=== PATIENT | female | born 1990 | race Caucasian/White ===

== ENCOUNTER 2025-05-07 14:22 | Emergency (ER) | payer OTHER, SELFPAY ==
[2025-05-07 14:23] VITALS: BP 132/79; PULSE 111; RESP 16; TEMP 36.4; O2SAT 100; BMI 31.1
--- NOTE | 2025-05-07 17:34 | US_ITS ---
PROCEDURE: RIGHT LOWER EXTREMITY VENOUS DUPLEX IMAG/LIMITED/UNI 05/07/2025 REASON FOR EXAM: Right leg pain/swelling medial thigh region TECHNIQUE: Procedure Code: USVDUL Modality: US Procedure: VENOUS DUPLEX IMAG/LIMITED/UNI COMPARISON: None. FINDINGS: No intraluminal echogenicity to suggest the presence of a deep venous thrombosis. Appropriate respiratory variation, augmentation and venous compression is noted. In the medial right thigh at the area of clinical concern, there is thrombosis of a superficial venous varicosity seen compatible with superficial thrombophlebitis. US/Venous Duplex Imag/Limited/Uni IMPRESSION: No DVT in the right lower extremity. There is superficial thrombophlebitis of a superficial varicose vein in the medial right thigh at the area of clinical concern/tenderness. Reading Location: [id number]
--- NOTE | 2025-05-07 17:36 | EDS_ITS ---
HPI History of Present Illness Chief Complaint: Edema Detail of Chief Complaint: Pain, swelling redness proximal medial right thigh Onset/Context/Timing Onset: Yesterday Context: Sudden Onset Timing: Continuous Quality: Pain Location: Greater saphenous vein Current Severity: Mild Maximum Severity: Moderate Worsened by: Palpation Relieved by: Nothing Associated Symptoms Associated Symptoms: Rapid heart rate Narrative Narrative: Patient is a G2, P1 female who is 28 weeks gestation who presents with pain swelling redness proximal medial right thigh. Pain started yesterday. Swelling was noted today. She has no history of PE or DVT. She does have varicose veins. She contacted her OB yesterday who recommended she do different things for the pain. She contacted again and was recommended she come to the emergency department. She denies shortness of breath at baseline or dyspnea on exertion compared to 1 to 2 weeks ago. She denies pleuritic pain. She has no allergies. Prior similar symptoms: No Recent Illness/Hospitalization: No PFSH PFSH Allergy/AdvReac Type Severity Reaction Status Date / Time amoxicillin AdvReac Mild Nausea/Vom/ Verified 05/07/25 14:24 Diarrhea Social History (Updated 05/07/25 @ 17:[address] Roman Link MD) household members: spouse and children Smoking Status: Never smoker ROS ROS ED Constitutional Constitutional ED: Denies chills, fever(s), subjective or sweats Genitourinary Genitourinary ED: Reports urinary frequency Musculoskeletal Musculoskeletal: Denies arthralgias or myalgias Integumentary Reports other Details: Visible superficial thrombus of the proximal right greater saphenous vein also varicosities of the lower extremities. There is also a possible superficial clot lateral and inferior of the right knee joint ; Denies abscess, Abrasions or rash Psychiatric Psychiatric: Reports anxiety; Denies depression Endocrine Endocrinology: Denies cold intolerance or heat intolerance Hematologic/Lymphatic Hematologic/Lymphatic: Reports systems reviewed and no addt'l complaints, except as documented EXAM Physical Exam Const Vital Signs: 05/07/25 14:23 05/07/25 17:43 05/07/25 18:34 Temperature 97.6 F L Temperature Source Temporal Pulse Rate 111 H 85 Respiratory Rate 16 15 Respiratory Effort Normal Respiratory Pattern Normal Blood Pressure 132/79 H 119/75 Blood Pressure Mean 96 89 Pulse Ox 100 100 Oxygen Delivery Method Room Air Positive well nourished and well developed General Appearance ED: well developed and NAD; Negative for pallor HEENT Reports moist mucous membranes Eyes PERRL and EOMs intact bilaterally General Eye ED: Negative for scleral icterus Resp normal respiratory effort and clear to auscultation bilaterally Cardio regular rhythm, S1 normal heart sound, S2 normal heart sound and no murmurs Rate: tachycardic GI normal to inspection, nondistended, normoactive bowel sounds, non-tender, non- distended and no masses; Negative for hepatosplenomegaly GI Narrative: Fundal height 6 fingerbreadths below the xiphoid process Extremity Negative for normal to inspection Extremity Narrative: Varicosities, question of a superficial thrombus inferior and lateral of the right knee joint and a thrombus of the proximal greater right saphenous vein. Neuro oriented x3 and CN's II-XII intact bilaterally Sensorium / Orientation: alert Psych mental status grossly normal Skin no rashes or lesions noted, no wounds and skin turgor normal General Skin Exam: elasticity normal; Negative for jaundice or pallor MDM MDM MDM Narrative Medical decision making narrative: Patient with superficial thrombophlebitis involving the greater saphenous vein. Need to obtain venous duplex to determine if this is within 10 cm of the deep venous system. If it is she will require anticoagulation. Will discuss findings with her OB once the venous duplex that he has been done and interpreted. Radiography Diagnostic Testing: Clinical Impression(s) from Imaging Studies Venous Duplex 05/07/25 17:34 IMPRESSION: No DVT in the right lower extremity. There is superficial thrombophlebitis of a superficial varicose vein in the medial right thigh at the area of clinical concern/tenderness. Reading Location: [id number] The clot does not involve the greater saphenous vein. It is truly a superficial vein. Spoke with her OB doctor during her [place]. Tylenol for pain and warm compresses. Discharge Plan Triage Chief Complaint: Edema ED Provider: Roman Link Dx/Rx/DC Orders Clinical Impression: Superficial thrombophlebitis in , Sinus tachycardia, Third trimester Instructions: ED Thrombophlebitis, Superficial Primary Care Provider: Care Physician,No Primary Referrals: Savana Fernández CNM [Med Staff - Adv Practice Prof, Obstetrics] - 1-2 Weeks Care Physician,No Primary [Primary Care Provider, Medical] Activity Restrictions/Additional Instructions: Warm compresses to area 6-8 times a day Take Tylenol for pain Print Language: [place] Disposition Disposition: Home, Self Care
[2025-05-07 18:34] VITALS: BP 119/75; PULSE 85; RESP 15; O2SAT 100
[2025-05-07 19:53] VITALS: BP 118/72; PULSE 100; RESP 18; TEMP 37; O2SAT 100
== END 2025-05-07 19:56 | disposition home or self-care (01) ==
PROVIDERS: Emergency Provider Emergency Medicine; Visit Provider Emergency Medicine
DX: O22.23 Superficial thrombophlebitis in pregnancy, third trimester (principal); I80.01 Phlebitis and thrombophlebitis of superficial vessels of right lower extremity; Z3A.28 28 weeks gestation of pregnancy
CPT/HCPCS: 93971; 99282